=== PATIENT | male | born 1975 | race Caucasian/White ===

== ENCOUNTER 2017-01-10 01:47 | Emergency (ER) | payer MEDICAID ==
[2017-01-10 02:04] VITALS: RESP 18; TEMP 97; O2SAT 98
--- NOTE | 2017-01-10 02:30 | ED PDOC ---
Arrival/HPI - General Chief Complaint: Rib Injury Time Seen by Provider: 01/10/17 01:52 Historian: Patient - History of Present Illness Narrative History of Present Illness (Text): 01/10/17 02:29 Shelton Liz is a 42 year old male, with no significant past medical history, who presents to the emergency department complaining of right-sided lower rib pain. Patient states he was lying on the floor on his right-sided playing with children when he began experiencing pain. Patient states pain is worse with movement. Patient notes he took Ibuprofen at home with relief. Patient denies any fever, chills, shortness of breath, abdominal pain, nausea, vomiting, diarrhea, urinary symptoms, back pain, neck pain, headache, dizziness, or any other complaints. Symptom Onset: Gradual Symptom Course: Unchanged Activities at Onset: Light Context: Home Past Medical History - Provider Review Nursing Documentation Reviewed: Yes - Psychiatric Hx Substance Use: No - Surgical History Other/Comment: anal fissure repair - Anesthesia Hx Anesthesia: Yes Hx Anesthesia Reactions: No Hx Malignant Hyperthermia: No Family/Social History - Physician Review Nursing Documentation Reviewed: Yes Family/Social History: Unknown Family HX Smoking Status: Former Smoker Hx Alcohol Use: No Hx Substance Use: No Allergies/Home Meds Allergies/Adverse Reactions: Allergies No Known Allergies Allergy (Verified 01/10/17 01:59) Review of Systems - Physician Review All systems were reviewed & negative as marked: Yes - Review of Systems Constitutional: Normal. absent: Fevers Eyes: Normal ENT: Normal Respiratory: Normal. absent: SOB, Cough Cardiovascular: Normal. absent: Chest Pain Gastrointestinal: Normal. absent: Abdominal Pain, Diarrhea, Nausea, Vomiting Genitourinary Male: Normal. absent: Dysuria, Frequency, Hematuria, Urinary Output Changes Musculoskeletal: Other (+right lower rib pain) Skin: Normal Neurological: Normal. absent: Headache, Dizziness Endocrine: Normal Hemo/Lymphatic: Normal Psychiatric: Normal Physical Exam Vital Signs Reviewed: Yes Vital Signs Temp Pulse Resp BP Pulse Ox 01/10/17 02:02 97.0 F L 70 18 143/98 H 98 Temperature: Afebrile Blood Pressure: Normal Pulse: Regular Respiratory Rate: Normal Appearance: Positive for: Well-Appearing, Non-Toxic, Comfortable Pain Distress: None Mental Status: Positive for: Alert and Oriented X 3 - Systems Exam Head: Present: Atraumatic, Normocephalic Pupils: Present: PERRL Extroacular Muscles: Present: EOMI Conjunctiva: Present: Normal Mouth: Present: Moist Mucous Membranes Neck: Present: Normal Range of Motion Respiratory/Chest: Present: Clear to Auscultation, Good Air Exchange, Tender to Palpation (Palpable tenderness over right lateral lower rib cage). No: Respiratory Distress, Accessory Muscle Use Cardiovascular: Present: Regular Rate and Rhythm, Normal S1, S2. No: Murmurs Abdomen: Present: Normal Bowel Sounds. No: Tenderness, Distention, Peritoneal Signs Back: Present: Normal Inspection Upper Extremity: Present: Normal Inspection. No: Cyanosis, Edema Lower Extremity: Present: Normal Inspection. No: Edema Neurological: Present: GCS=15, CN II-XII Intact, Speech Normal Skin: Present: Warm, Dry, Normal Color. No: Rashes Psychiatric: Present: Alert, Oriented x 3, Normal Insight, Normal Concentration Medical Decision Making ED Course and Treatment: 01/10/17 02:29 Impression: 42 year old male complaining of right lower rib pain Differential Diagnosis included but are not limited to: rib contusion vs. musculoskeletal pain Plan: -- EKG -- XR Right Ribs -- Toradol -- Reassess and disposition Progress Notes: Reviewed EKG, NSR at [address]-segment elevations or depressions, no T-wave inversions, normal intervals. 01/10/17 04:30 Reviewed radiology, XR Right Ribs shows no acute processes. 01/10/17 04:45 On reevaluation the patient feels better and is in no acute distress. I have discussed the results and plan with the patient, who expresses understanding. Patient is stable for discharge. Patient was instructed to follow up with physician/clinic in 1-2 days or return if symptoms persist/worsen or new concerning symptoms arise. - RAD Interpretation Radiology Orders: 01/10/17 02:31 RIBS RIGHT & PA CHEST [RAD] Stat [employer] Director: ED Physician - EKG Interpretation Interpreted by ED Physician: Yes Type: 12 lead EKG - Medication Orders Current Medication Orders: Discontinued Medications Ketorolac Tromethamine (Toradol) 60 mg IM ONCE ONE Stop: 01/10/17 02:32 Last Admin: 01/10/17 03:02 Dose: 60 mg MAR Pain Assessment Document 01/10/17 03:02 SC (Rec: 01/10/17 03:02 SC [id number]) Pain Reassessment Is this a pain reassessment? No Sleep Is patient sleeping during reassessment? No Presence of Pain Presence of Pain Yes Pain Scale Used Pain Scale Used Numeric Description Intensity of Pain at present 6 IM Administration Charges Document 01/10/17 03:02 MS (Rec: 01/10/17 03:02 MS [id number]) Charges for Administration # of IM Administrations 1 - Scribe Statement The provider has reviewed the documentation as recorded by the Scribe Azalia Christensen All medical record entries made by the Scribe were at my direction and personally dictated by me. I have reviewed the chart and agree that the record accurately reflects my personal performance of the history, physical exam, medical decision making, and the department course for this patient. I have also personally directed, reviewed, and agree with the discharge instructions and disposition. Disposition/Present on Arrival - Present on Arrival Any Indicators Present on Arrival: No History of DVT/PE: No History of Uncontrolled Diabetes: No Urinary Catheter: No History of Decub. Ulcer: No History Surgical Site Infection Following: None - Disposition Have Diagnosis and Disposition been Completed?: Yes Diagnosis: Contusion of ribs Disposition: HOME/ ROUTINE Disposition Time: 04:43 Patient Plan: Discharge Patient Problems: Current Active Problems Problem Status Onset Contusion of ribs Acute Condition: GOOD Discharge Instructions (ExitCare): Contusion in Adults (ED), Rib Contusion (ED) Additional Instructions: Rest/no strenuous physical activity/take meds as prescribed/follow up with your doctor this week Prescriptions: Naproxen [Naprosyn] 500 mg PO BID PRN #14 tab PRN Reason: Pain Referrals: Jamie Herrera MD [Primary Care Provider] - Follow up with primary Forms: [employer] ([place])
[2017-01-10 05:07] VITALS: BP 130/80; PULSE 73
--- NOTE | 2017-01-10 10:42 | RAD ---
PROCEDURE: Radiographs of the Chest and Right Ribs. HISTORY: injury COMPARISON: None available. TECHNIQUE: Frontal radiograph of the chest and multiple oblique radiographs of the right ribs were obtained. FINDINGS: RIGHT RIBS: No fracture or focal lesion visualized. LUNGS: Clear. PLEURA: No pneumothorax or pleural fluid. CARDIOVASCULAR: Normal sized heart. No pulmonary vascular congestion. OTHER FINDINGS: None. IMPRESSION: Unremarkable radiographs of the chest and right ribs. No right rib fracture.
--- NOTE | 2017-01-10 20:59 | CARD ---
APPROVED REPORT EKG Measurement Heart [id number] MI [id number] <Conclusion> Normal sinus rhythm Possible Left atrial enlargement Borderline ECG
== END 2017-01-10 05:03 | disposition home or self-care (01) ==
LOC: ED 01:47
DX: S20.211A Contusion of right front wall of thorax, initial encounter (principal); X58.XXXA Exposure to other specified factors, initial encounter; Y93.89 Activity, other specified; Y92.89 Other specified places as the place of occurrence of the external cause
CPT/HCPCS: 71101; 93005; 96372; 99283; J1885

== ENCOUNTER 2017-03-20 06:06 | Emergency (ER) | payer MEDICAID ==
[2017-03-20 06:30] VITALS: RESP 18; TEMP 98.4; O2SAT 100
[2017-03-20] MEDS ORDERED: Morphine 4 mg/ml ISec IVP STA (06:48)
[2017-03-20] MEDS ORDERED: Sodium Chloride 0.9% 1,000 ML IV STA (06:48)
--- NOTE | 2017-03-20 06:52 | ED PDOC ---
Arrival/HPI - General Chief Complaint: Male Genitourinary Time Seen by Provider: 03/20/17 06:15 - History of Present Illness Narrative History of Present Illness (Text): 03/20/17 06:49 42 yo M presetins with abdominal pain in LLQ that occasionally radiates into testicle. no hx of kidney stones, no hematuria. no fevers. no chills. no hx fo surgeries. started last night, now worsening and woke up from sleep. no position is good, can't get comfortable. + nausea, no vomitting. no CKD, no DM. nml BMs. Past Medical History - Provider Review Nursing Documentation Reviewed: Yes - Past History Past History: Non-Contributing - Psychiatric Hx Substance Use: No - Surgical History Other/Comment: anal fissure repair - Anesthesia Hx Anesthesia: Yes Hx Anesthesia Reactions: No Hx Malignant Hyperthermia: No Family/Social History - Physician Review Nursing Documentation Reviewed: Yes Family/Social History: No Known Family HX Smoking Status: Former Smoker Hx Alcohol Use: No Hx Substance Use: No Allergies/Home Meds Allergies/Adverse Reactions: Allergies No Known Allergies Allergy (Verified 01/10/17 01:59) Review of Systems - Review of Systems Constitutional: absent: Fevers Respiratory: Normal Cardiovascular: Normal Gastrointestinal: Abdominal Pain, Nausea. absent: Stool Changes, Constipation, Diarrhea, Vomiting Genitourinary Male: absent: Dysuria, Frequency, Hematuria Skin: Normal Hemo/Lymphatic: Normal Physical Exam Vital Signs Reviewed: Yes Vital Signs Temp Pulse Resp BP Pulse Ox 03/20/17 11:47 62 18 119/77 100 03/20/17 07:49 77 20 122/70 100 03/20/17 06:26 98.4 F 66 18 143/86 100 Respiratory Rate: Normal Appearance: Positive for: Well-Appearing, Uncomfortable Pain Distress: Moderate Mental Status: Positive for: Alert and Oriented X 3 - Systems Exam Head: Present: Atraumatic Pupils: Present: PERRL Extroacular Muscles: Present: EOMI Mouth: Present: Moist Mucous Membranes Pharnyx: Present: Normal Neck: Present: Normal Range of Motion Respiratory/Chest: Present: Clear to Auscultation, Good Air Exchange, Respiratory Distress Cardiovascular: Present: Regular Rate and Rhythm Abdomen: Present: Tenderness (LLQ), Normal Bowel Sounds. No: Distention, Peritoneal Signs, Hernias Genitourinary Male: Present: Normal External Genitalia. No: Testicle Tenderness , Penile Swelling, Masses, Testicle Swelling Upper Extremity: Present: Normal Inspection, Normal ROM Lower Extremity: Present: Normal Inspection Neurological: Present: GCS=15, Speech Normal, Motor Func Grossly Intact Skin: Present: Warm, Dry, Rashes Medical Decision Making ED Course and Treatment: 03/20/17 06:53 42 yo M concern for LLQ pain diverticulutis vs UVJ stone other bowel issue such as volvulus, obstruction. 03/20/17 07:[address] Iglesias pending labs, CT and revaluation. - Lab Interpretations Lab Results: 03/20/17 07:05 03/20/17 07:05 Lab Results 03/20/17 08:20: pO2 63 H, VBG pH 7.30 L, VBG pCO2 46.0, VBG HCO3 22.6, VBG Total CO2 24.0, VBG O2 Sat (Calc) 94.5 H, VBG Base Excess -4.0 L, VBG Potassium 4.5, Glucose 107, Lactate 1.7, FiO2 21.0, Sodium 141.0, Chloride 110.0 H, Venous Blood Potassium 4.5 03/20/17 07:05: Urine Color Yellow, Urine Appearance Clear, Urine pH 6.0, Ur Specific [place] >= 1.030, Urine Protein 30 H, Urine Glucose (UA) Negative, Urine Ketones Trace H, Urine Blood Moderate H, Urine Nitrate Negative, Urine Bilirubin Negative, Urine Urobilinogen 0.2, Ur Leukocyte Esterase Negative, Urine RBC 25 - 30, Urine WBC 0 - 2, Ur Epithelial Cells 0 - 2, Calcium Oxalate Crystal Occ, Urine Bacteria Small, Hyaline Casts 0 - 2 03/20/17 07:05: Sodium 144, Potassium 3.8, Chloride 107, Carbon Dioxide 25, Anion Gap 16, BUN 18, Creatinine 0.9, Est GFR ( Amer) > 60, Est GFR (Non- Af Amer) > 60, Random Glucose 102, Calcium 9.5, Total Bilirubin 0.4, AST 19, ALT 28, Alkaline Phosphatase 59, Troponin I < 0.01, Total Protein 7.9, Albumin 4.6, Globulin 3.3, Albumin/Globulin Ratio 1.4 03/20/17 07:05: WBC 8.8, RBC 4.47, Hgb 13.4 L, Hct 40.7 L, MCV 91.1, MCH 30.0, MCHC 32.9, RDW 13.4, Plt Count 233, MPV 12.1 H, Gran % 59.4, Lymph % (Auto) 30.8 , [place] % (Auto) 6.7 H, Eos % (Auto) 2.8, Baso % (Auto) 0.3, Gran # 5.22, Lymph # 2.7, [place] # 0.6, Eos # 0.3, Baso # 0.03 - RAD Interpretation Radiology Orders: 03/20/17 06:47 ABD & PELVIS IV CONTRAST ONLY [CT] Stat - Medication Orders Current Medication Orders: Discontinued Medications Hydromorphone HCl (Dilaudid) 1 mg IVP STAT STA Stop: 03/20/17 07:29 Last Admin: 03/20/17 07:36 Dose: 1 mg [facility] Pain Assessment Document 03/20/17 07:36 RG (Rec: 03/20/17 07:41 RG [id number]) Pain Reassessment Is this a pain reassessment? Yes Sleep Is patient sleeping during reassessment? No Presence of Pain Presence of Pain Yes Pain Scale Used Pain Scale Used Numeric Location Left, Right or Bilateral Left Upper or Lower Lower Pain Location Body Site Abdomen Description Description Constant Intensity of Pain at present 8 Pain Behavior Moaning Guarding Irritability Withdrawal from Touch Aggravating Factors Changing Position IVP Administration Document 03/20/17 07:36 RG (Rec: 03/20/17 07:41 RG [id number]) Charges for Administration # of IVP Administrations 1 Re-Assess: [facility] Pain Assessment Document 03/20/17 08:36 EWO (Rec: 03/20/17 09:38 EWO [id number]) Pain Reassessment Is this a pain reassessment? Yes Sleep Is patient sleeping during reassessment? No Presence of Pain Presence of Pain No Pain Scale Used Pain Scale Used Numeric Location Pain Location Body Site Abdomen Description Intensity of Pain at present 0 Sodium Chloride (Sodium Chloride 0.9%) 1,000 mls @ 999 mls/hr IV .Q1H1M STA Stop: 03/20/17 07:48 Last Admin: 03/20/17 07:00 Dose: 999 mls/hr eMAR Start Stop Document 03/20/17 07:00 PAULA (Rec: 03/20/17 07:00 PAULA [id number]) Intravenous Solution Start Date 03/20/17 Start Time 07:00 End Date 03/20/17 End time 08:00 Total Infusion Time 60 Morphine Sulfate (Morphine) 4 mg IVP STAT STA Stop: 03/20/17 06:49 Last Admin: 03/20/17 06:58 Dose: 4 mg [facility] Pain Assessment Document 03/20/17 06:58 PAULA (Rec: 03/20/17 06:58 [id number][facility] Pain Reassessment Is this a pain reassessment? Yes IVP Administration Document 03/20/17 06:58 PAULA (Rec: 03/20/17 06:58 [id number]) Charges for Administration # of IVP Administrations 1 Re-Assess: [facility] Pain Assessment Document 03/20/17 07:58 EWO (Rec: 03/20/17 09:38 EWO [id number]) Pain Reassessment Is this a pain reassessment? Yes Sleep Is patient sleeping during reassessment? No Presence of Pain Presence of Pain Yes Description Description Constant Ondansetron HCl (Zofran Inj) 4 mg IVP STAT STA Stop: 03/20/17 06:49 Last Admin: 03/20/17 06:59 Dose: 4 mg IVP Administration Document 03/20/17 06:59 PAULA (Rec: 03/20/17 06:59 [id number]) Charges for Administration # of IVP Administrations 1 Disposition/Present on Arrival - Present on Arrival Any Indicators Present on Arrival: No History of DVT/PE: No History of Uncontrolled Diabetes: No Urinary Catheter: No History of Decub. Ulcer: No History Surgical Site Infection Following: None - Disposition Have Diagnosis and Disposition been Completed?: Yes Diagnosis: Ureteral calculus Disposition: HOME/ ROUTINE Disposition Time: 09:00 Patient Plan: Discharge Condition: IMPROVED Discharge Instructions (ExitCare): Ureteral Stones (ED) Additional Instructions: Please follow up with the urologist. Return to the ER for any worsening symptoms , fever, chills, or for any other concerns. Prescriptions: Ondansetron ODT [Zofran ODT] 4 mg PO Q4H PRN #10 odt PRN Reason: Nausea/Vomiting oxyCODONE/Acetaminophen [Percocet 5/325 mg Tab] 1 ea PO Q6H PRN #6 tab PRN Reason: Pain, Severe (8-10) Tamsulosin [Flomax] 0.4 mg PO DAILY #4 cap Referrals: Wesley Moncada MD [Staff Provider] - Follow up with primary Forms: [employer] ([place]wana), WORK NOTE
[2017-03-20 07:24] LABS: BASO # 0.03 K/mm3 (0.0-2.0); BASO % 0.3 % (0.0-3.0); EOS # 0.3 (0.0-0.7); EOS % 2.8 % (1.5-5.0); GRAN # 5.22 (1.4-6.5); GRAN % 59.4 % (50.0-68.0); HEMOGLOBIN 13.4 g/dL (14.0-18.0); LYMPH # 2.7 (1.2-3.4); LYMPH % 30.8 % (22.0-35.0); MEAN CELL VOLUME 91.1 fl (80.0-105.0); MEAN CORPUSCULAR HGB CONC 32.9 g/dl (31.0-37.0); MEAN PLATELET VOLUME 12.1 fl (7.0-11.0); MONO # 0.6 (0.1-0.6); MONO % 6.7 % (1.0-6.0); RBC 4.47 10^6/uL (3.5-6.1); RED CELL DISTRIBUTION WIDTH 13.4 % (11.5-14.5); URINE BILIRUBIN NEGATIVE (NEGATIVE); URINE BLOOD MODERATE (NEGATIVE); URINE GLUCOSE (UA) NEGATIVE (NEGATIVE); URINE LEUKOCYTE ESTERASE NEGATIVE Leu/uL (NEGATIVE); URINE NITRATE NEGATIVE (NEGATIVE); URINE PROTEIN 30 mg/dL (<30 mg/dL); URINE UROBILINOGEN 0.2 E.U./dL (<1 E.U./dL); WHITE BLOOD COUNT 8.8 10^3/ul (4.5-11.0)
[2017-03-20] MEDS ORDERED: HYDROmorphone 1 mg/ml ISec IVP STA (07:28)
[2017-03-20 07:34] LABS: ALB/GLOB RATIO 1.4 (1.1-1.8); ALBUMIN 4.6 g/dL (3.0-4.8); ALT/SGPT 28 U/L (7-56); AST/SGOT 19 U/L (17-59); BLOOD UREA NITROGEN 18 mg/dL (7-21); CALCIUM 9.5 mg/dL (8.4-10.5); GFR AFRICAN-AMERICAN > 60; GFR NON-AFRICAN AMERICAN > 60
[2017-03-20 07:40] LABS: URINE APPEARANCE CLEAR (CLEAR); URINE COLOR YELLOW (YELLOW)
[2017-03-20 07:44] LABS: TROPONIN I < 0.01 ng/mL
--- NOTE | 2017-03-20 08:13 | ED PDOC ---
Physical Exam Vital Signs Reviewed: Yes Vital Signs Temp Pulse Resp BP Pulse Ox 03/20/17 06:26 98.4 F 66 18 143/86 100 Temperature: Afebrile Blood Pressure: Normal Pulse: Regular Respiratory Rate: Normal Medical Decision Making ED Course and Treatment: 03/20/17 08:12 Patient endorsed to me by Dr. Langston at 07:00, pending labs and CT results. Report Date : 03/20/2017 10:45:51 PROCEDURE: CT scan abdomen and pelvis 03/20/2017. Dictator : Shelton Palacio MD IMPRESSION: 3.5 mm calcification in the with the left aspect of the pelvis possibly representing a calculus within left UVJ or possibly in the intramural portion of the distal left ureter with minor dilatation of the left ureter. Clinical correlation with urinalysis recommended. Multiple bilateral renal cysts. Findings consist with constipation the with the fecalized content extending into the distal ileum. Mild passive atelectasis both posterior lower lung zones. 03/20/17 11:30 On re-evaluation, patient is resting comfortable in no acute distress. He states his pain has fully resolved. I have discussed the results and plan with the patient, who expresses understanding. Patient in agreement with plan to be discharged home. Patient is stable for discharge. Patient was instructed to follow up with urologist or return if symptoms worsen or new concerning symptoms arise. - Lab Interpretations Lab Results: 03/20/17 07:05 03/20/17 07:05 Lab Results 03/20/17 08:20: pO2 63 H, VBG pH 7.30 L, VBG pCO2 46.0, VBG HCO3 22.6, VBG Total CO2 24.0, VBG O2 Sat (Calc) 94.5 H, VBG Base Excess -4.0 L, VBG Potassium 4.5, Glucose 107, Lactate 1.7, FiO2 21.0, Sodium 141.0, Chloride 110.0 H, Venous Blood Potassium 4.5 03/20/17 07:05: Urine Color Yellow, Urine Appearance Clear, Urine pH 6.0, Ur Specific [place] >= 1.030, Urine Protein 30 H, Urine Glucose (UA) Negative, Urine Ketones Trace H, Urine Blood Moderate H, Urine Nitrate Negative, Urine Bilirubin Negative, Urine Urobilinogen 0.2, Ur Leukocyte Esterase Negative, Urine RBC 25 - 30, Urine WBC 0 - 2, Ur Epithelial Cells 0 - 2, Calcium Oxalate Crystal Occ, Urine Bacteria Small, Hyaline Casts 0 - 2 03/20/17 07:05: Sodium 144, Potassium 3.8, Chloride 107, Carbon Dioxide 25, Anion Gap 16, BUN 18, Creatinine 0.9, Est GFR ( Amer) > 60, Est GFR (Non- Af Amer) > 60, Random Glucose 102, Calcium 9.5, Total Bilirubin 0.4, AST 19, ALT 28, Alkaline Phosphatase 59, Troponin I < 0.01, Total Protein 7.9, Albumin 4.6, Globulin 3.3, Albumin/Globulin Ratio 1.4 03/20/17 07:05: WBC 8.8, RBC 4.47, Hgb 13.4 L, Hct 40.7 L, MCV 91.1, MCH 30.0, MCHC 32.9, RDW 13.4, Plt Count 233, MPV 12.1 H, Gran % 59.4, Lymph % (Auto) 30.8 , [place] % (Auto) 6.7 H, Eos % (Auto) 2.8, Baso % (Auto) 0.3, Gran # 5.22, Lymph # 2.7, [place] # 0.6, Eos # 0.3, Baso # 0.03 - RAD Interpretation Radiology Orders: 03/20/17 06:47 ABD & PELVIS IV CONTRAST ONLY [CT] Stat - Medication Orders Current Medication Orders: Discontinued Medications Hydromorphone HCl (Dilaudid) 1 mg IVP STAT STA Stop: 03/20/17 07:29 Last Admin: 03/20/17 07:36 Dose: 1 mg [facility] Pain Assessment Document 03/20/17 07:36 (Rec: 03/20/17 07:41 [id number]) Pain Reassessment Is this a pain reassessment? Yes Sleep Is patient sleeping during reassessment? No Presence of Pain Presence of Pain Yes Pain Scale Used Pain Scale Used Numeric Location Left, Right or Bilateral Left Upper or Lower Lower Pain Location Body Site Abdomen Description Description Constant Intensity of Pain at present 8 Pain Behavior Moaning Guarding Irritability Withdrawal from Touch Aggravating Factors Changing Position IVP Administration Document 03/20/17 07:36 (Rec: 03/20/17 07:41 [id number]) Charges for Administration # of IVP Administrations 1 Re-Assess: [facility] Pain Assessment Document 03/20/17 08:36 EWO (Rec: 03/20/17 09:38 EWO [id number]) Pain Reassessment Is this a pain reassessment? Yes Sleep Is patient sleeping during reassessment? No Presence of Pain Presence of Pain No Pain Scale Used Pain Scale Used Numeric Location Pain Location Body Site Abdomen Description Intensity of Pain at present 0 Sodium Chloride (Sodium Chloride 0.9%) 1,000 mls @ 999 mls/hr IV .Q1H1M STA Stop: 03/20/17 07:48 Last Admin: 03/20/17 07:00 Dose: 999 mls/hr eMAR Start Stop Document 03/20/17 07:00 PAULA (Rec: 03/20/17 07:00 [facility]ULA [id number][facility] Intravenous Solution Start Date 03/20/17 Start Time 07:00 End Date 03/20/17 End time 08:00 Total Infusion Time 60 Morphine Sulfate (Morphine) 4 mg IVP STAT STA Stop: 03/20/17 06:49 Last Admin: 03/20/17 06:58 Dose: 4 mg [facility] Pain Assessment Document 03/20/17 06:58 PAULA (Rec: 03/20/17 06:58 [facility]ULA [facility] [id number]) Pain Reassessment Is this a pain reassessment? Yes IVP Administration Document 03/20/17 06:58 PAULA (Rec: 03/20/17 06:58 [facility]ULA [facility] [id number]) Charges for Administration # of IVP Administrations 1 Re-Assess: [facility] Pain Assessment Document 03/20/17 07:58 EWO (Rec: 03/20/17 09:38 O [facility] [id number]) Pain Reassessment Is this a pain reassessment? Yes Sleep Is patient sleeping during reassessment? No Presence of Pain Presence of Pain Yes Description Description Constant Ondansetron HCl (Zofran Inj) 4 mg IVP STAT STA Stop: 03/20/17 06:49 Last Admin: 03/20/17 06:59 Dose: 4 mg IVP Administration Document 03/20/17 06:59 PAULA (Rec: 03/20/17 06:59 PAULA [id number]) Charges for Administration # of IVP Administrations 1 Disposition/Present on Arrival - Present on Arrival Any Indicators Present on Arrival: No History of DVT/PE: No History of Uncontrolled Diabetes: No Urinary Catheter: No History of Decub. Ulcer: No History Surgical Site Infection Following: None - Disposition Have Diagnosis and Disposition been Completed?: Yes Disposition Time: 11:30 Referrals: Jamie Herrera MD [Primary Care Provider] - Follow up with primary Forms: [employer] (Irish)
[2017-03-20 08:27] LABS: URINE BACTERIA SMALL (NEG); URINE EPITHELIAL CELLS 0 - 2 /hpf (0-5); URINE HYALINE CAST 0 - 2 /hpf
[2017-03-20 08:29] LABS: VENOUS BLOOD GAS PO2 63 mm/Hg (30-55)
[2017-03-20 08:33] LABS: URINE RBC 25 - 30 /hpf (0-2); URINE WBC 0 - 2 /hpf (0-6)
[2017-03-20 08:34] LABS: URINE CALCIUM OXALATE CRYSTALS OCC /hpf
[2017-03-20] MEDS ORDERED: Iohexol 350 MG/100 ML VIAL ONE (08:50)
--- NOTE | 2017-03-20 10:47 | CT ---
PROCEDURE: CT scan abdomen and pelvis 03/20/2017. HISTORY: LLQ abdominal pain COMPARISON: None. TECHNIQUE: Contiguous axial images of the abdomen and pelvis pelvis performed following intravenous injection of approximately 100 cc of Omnipaque 350 contrast material. . Coronal and Sagittal reformats generated. Radiation dose: Total exam DLP = 752.21 mGy-cm. This CT exam was performed using one or more of the following dose reduction techniques: Automated exposure control, adjustment of the mA and/or kV according to patient size, and/or use of iterative reconstruction technique. FINDINGS: LOWER THORAX: Mild passive atelectasis in the posterior lower lung zones. Lung lau otherwise clear. No effusion or basilar pneumothorax. There is a small hiatal hernia. Heart size within range of normal. No significant pericardial effusion. No infiltrate effusion or basilar pneumothorax. LIVER: Liver demonstrates relatively normal size measuring approximately 17 cm in CC dimension. No obvious hepatic mass collection or calcification. Portal and splenic veins are opacified. GALLBLADDER AND BILE DUCTS: Gallbladder is physiologically distended. No evidence of intraluminal gallbladder calculi. PANCREAS: Unremarkable. No mass. No ductal dilatation. SPLEEN: Unremarkable. No splenomegaly. ADRENALS: Unremarkable. KIDNEYS AND URETERS: 3.5 mm calcification in the with the left aspect of the pelvis possibly representing a calculus within left UVJ or possibly in the intramural portion of the distal left ureter with minor dilatation of the left ureter. . Clinical correlation with urinalysis recommended. The There are multiple bilateral renal cysts, the 2 largest of which are partially exophytic and arise from the upper and anterolateral aspect mid to lower poles of the left kidney ; the 1st measures approximately 6.0 x 5.4 cm and the 2nd measures approximately 6.0 x 4.4 2 cm. The largest partially exophytic cyst arising from lower pole right kidney measures approximately 3.8 cm. . Several smaller bilateral renal cysts are also noted. No evidence of nephrolithiasis or hydronephrosis. BLADDER: Urinary bladder is physiologically distended. No evidence of intraluminal urinary bladder calculi. REPRODUCTIVE: Prostate gland appears grossly unremarkable. APPENDIX: What is felt to represent normal appendix best seen on coronal image number [id number]. No periappendiceal inflammatory changes. BOWEL: Evaluation of the bowel is limited due to the lack of oral contrast material. The stomach is collapsed which in part accounts for thick-walled appearance. Visualized loops of small bowel exhibit normal contour and caliber. No evidence of acute mechanical small bowel obstruction however note made of a moderate amount of fecalized content within the distal ileum with a moderately large amount of stool in the cecum and ascending as well as transverse colon consistent with fecal retention-constipation. The sigmoid colon is redundant. No definitive evidence of abnormal mural wall thickening. PERITONEUM: Unremarkable. No fluid collection. No free air. There is a small fat containing umbilical hernia. LYMPH NODES: Note made of multiple small nonspecific mesenteric lymph nodes. VASCULATURE: Unremarkable. No aortic aneurysm. BONES: Minor multilevel degenerative spondylosis of the lower thoracic and lumbar spine. OTHER FINDINGS: None. IMPRESSION: 3.5 mm calcification in the with the left aspect of the pelvis possibly representing a calculus within left UVJ or possibly in the intramural portion of the distal left ureter with minor dilatation of the left ureter. . Clinical correlation with urinalysis recommended. Multiple bilateral renal cysts. Findings consist with constipation the with the fecalized content extending into the distal ileum. Mild passive atelectasis both posterior lower lung zones.
[2017-03-20 11:48] VITALS: BP 119/77; PULSE 62
== END 2017-03-20 12:00 | disposition home or self-care (01) ==
LOC: ED 06:06
DX: N20.1 Calculus of ureter (principal)
CPT/HCPCS: 74177; 80053; 81001; 82803; 84484; 85025; 96361; 96374; 96375; 99283; J1170; J2270; J2405; J7040; Q9967

== ENCOUNTER 2017-04-21 23:02 | Emergency (ER) | payer MEDICAID ==
[2017-04-21 23:35] VITALS: RESP 18; TEMP 97.6
--- NOTE | 2017-04-21 23:57 | ED PDOC ---
Arrival/HPI - General Chief Complaint: Dizziness/Lightheaded Time Seen by Provider: 04/21/17 23:28 Historian: Patient - History of Present Illness Narrative History of Present Illness (Text): 04/21/17 23:53 Shelton Liz is a 42 year old male, whose past medical history includes renal stones, who presents to the Emergency department complaining of dizziness. Patient states he was recently diagnosed with renal stones on few weeks and prior and placed on Percocet. Patient states he took 1 Percocet tablet tonight and began feeling very dizzy with associated nausea. Patient states he has taken Percocet before but did not experience any symptoms. Patient states dizziness and nausea has resolved, but notes some left flank pain consistent with his usual kidney stone discomfort. Patient denies any fever, chills, chest pain, shortness of breath, vomiting, diarrhea, urinary symptoms, neck pain, headache, or any other complaints. Symptom Onset: Gradual Symptom Course: Unchanged Activities at Onset: Light Context: Home Past Medical History - Provider Review Nursing Documentation Reviewed: Yes - Past History Past History: Non-Contributing - Cardiac Hx Cardiac Disorders: No - Pulmonary Hx Respiratory Disorders: No - Neurological Hx Neurological Disorder: No Hx Vertigo: Yes - HEENT Hx HEENT Disorder: No - Renal Hx Kidney Stones: Yes (left) - Endocrine/Metabolic Hx Endocrine Disorders: No - Hematological/Oncological Hx Blood Disorders: No - Integumentary Hx Dermatological Disorder: No - Musculoskeletal/Rheumatological Hx Musculoskeletal Disorders: No - Gastrointestinal Hx Gastrointestinal Disorders: No - Genitourinary/Gynecological Hx Genitourinary Disorders: No - Psychiatric Hx Psychophysiologic Disorder: No Hx Substance Use: No - Surgical History Other/Comment: anal fissure repair - Anesthesia Hx Anesthesia: Yes Hx Anesthesia Reactions: No Hx Malignant Hyperthermia: No Family/Social History - Physician Review Nursing Documentation Reviewed: Yes Family/Social History: Unknown Family HX Smoking Status: Former Smoker Hx Alcohol Use: No Hx Substance Use: No Allergies/Home Meds Allergies/Adverse Reactions: Allergies No Known Allergies Allergy (Verified 04/21/17 23:26) Review of Systems - Physician Review All systems were reviewed & negative as marked: Yes - Review of Systems Constitutional: Normal. absent: Fevers Eyes: Normal ENT: Normal Respiratory: Normal. absent: SOB, Cough Cardiovascular: Normal. absent: Chest Pain Gastrointestinal: Nausea. absent: Abdominal Pain, Diarrhea, Vomiting Genitourinary Male: Normal. absent: Dysuria, Frequency, Hematuria, Urinary Output Changes Musculoskeletal: Normal. absent: Back Pain, Neck Pain Skin: Normal. absent: Rash Neurological: Dizziness. absent: Headache Endocrine: Normal Hemo/Lymphatic: Normal Psychiatric: Normal Physical Exam Vital Signs Reviewed: Yes Vital Signs Temp Pulse Resp BP Pulse Ox 04/22/17 01:58 65 18 118/78 99 04/21/17 23:27 97.6 F 66 18 110/76 97 Temperature: Afebrile Blood Pressure: Normal Pulse: Regular Respiratory Rate: Normal Appearance: Positive for: Well-Appearing, Non-Toxic, Comfortable Pain Distress: None Mental Status: Positive for: Alert and Oriented X 3 - Systems Exam Head: Present: Atraumatic, Normocephalic Pupils: Present: PERRL Extroacular Muscles: Present: EOMI Conjunctiva: Present: Normal Mouth: Present: Moist Mucous Membranes Neck: Present: Normal Range of Motion Respiratory/Chest: Present: Clear to Auscultation, Good Air Exchange. No: Respiratory Distress, Accessory Muscle Use Cardiovascular: Present: Regular Rate and Rhythm, Normal S1, S2. No: Murmurs Abdomen: Present: Normal Bowel Sounds. No: Tenderness, Distention, Peritoneal Signs Back: Present: Normal Inspection Upper Extremity: Present: Normal Inspection. No: Cyanosis, Edema Lower Extremity: Present: Normal Inspection. No: Edema Neurological: Present: GCS=15, CN II-XII Intact, Speech Normal Skin: Present: Warm, Dry, Normal Color. No: Rashes Psychiatric: Present: Alert, Oriented x 3, Normal Insight, Normal Concentration Medical Decision Making ED Course and Treatment: 04/21/17 23:53 Impression: 42 year old male complaining of dizziness and nausea after taking Percocet tonight. Plan: -- EKG -- Labs -- UA -- Reassess and disposition Reviewed EKG, NSR at [address]-segment elevations or depressions, no T-wave inversions, normal intervals. 04/22/17 02:10 On re-evaluation, patient feels better and is in no acute distress. I have discussed the results and plan with the patient, who expresses understanding. Patient in agreement with plan to be discharged home. Patient is stable for discharge. Patient was instructed to follow up with physician or return if symptoms worsen or new concerning symptoms arise. - Lab Interpretations Lab Results: 04/22/17 00:30 04/22/17 00:30 Lab Results 04/22/17 00:30: Sodium 137, Potassium 3.6, Chloride 102, Carbon Dioxide 26, Anion Gap 14, BUN 15, Creatinine 0.7 L, Est GFR ( Amer) > 60, Est GFR ( Non-Af Amer) > 60, Random Glucose 110, Calcium 9.6, Total Bilirubin 0.6, AST 21 , ALT 33, Alkaline Phosphatase 68, Total Protein 7.6, Albumin 4.4, Globulin 3.2 , Albumin/Globulin Ratio 1.4 04/22/17 00:30: WBC 10.6 D, RBC 4.42, Hgb 13.4 L, Hct 39.9 L, MCV 90.3, MCH 30.3, MCHC 33.6, RDW 13.4, Plt Count 228, MPV 11.4 H, Gran % 58.8, Lymph % (Auto ) 31.7, [place] % (Auto) 6.6 H, Eos % (Auto) 2.7, Baso % (Auto) 0.2, Gran # 6.22, Lymph # (Auto) 3.4, [place] # (Auto) 0.7 H, Eos # (Auto) 0.3, Baso # (Auto) 0.02 04/22/17 00:28: Urine Color Yellow, Urine Appearance Clear, Urine pH 6.5, Ur Specific [place] 1.020, Urine Protein 100 H, Urine Glucose (UA) Negative, Urine Ketones Negative, Urine Blood Negative, Urine Nitrate Negative, Urine Bilirubin Negative, Urine Urobilinogen 0.2, Ur Leukocyte Esterase Negative, Urine RBC 0 - 2, Urine WBC 1 - 3, Ur Epithelial Cells 0 - 2 I have reviewed the lab results: Yes - EKG Interpretation Interpreted by ED Physician: Yes Type: 12 lead EKG - Scribe Statement The provider has reviewed the documentation as recorded by the Abelardo Christensen Provider Scribe Attestation: All medical record entries made by the Scribe were at my direction and personally dictated by me. I have reviewed the chart and agree that the record accurately reflects my personal performance of the history, physical exam, medical decision making, and the department course for this patient. I have also personally directed, reviewed, and agree with the discharge instructions and disposition. Disposition/Present on Arrival - Present on Arrival Any Indicators Present on Arrival: No History of DVT/PE: No History of Uncontrolled Diabetes: No Urinary Catheter: No History of Decub. Ulcer: No History Surgical Site Infection Following: None - Disposition Have Diagnosis and Disposition been Completed?: Yes Diagnosis: Medication adverse effect Disposition: HOME/ ROUTINE Disposition Time: 02:10 Condition: GOOD Discharge Instructions (ExitCare): Renal Colic (ED) Referrals: Jamie Herrera MD [Primary Care Provider] - Follow up with primary Forms: [employer] (E[place]ian)
[2017-04-22 00:38] LABS: BASO # 0.02 K/mm3 (0.0-2.0); BASO % 0.2 % (0.0-3.0); EOS # 0.3 (0.0-0.7); EOS % 2.7 % (1.5-5.0); GRAN # 6.22 (1.4-6.5); GRAN % 58.8 % (50.0-68.0); HEMOGLOBIN 13.4 g/dL (14.0-18.0); LYMPH # 3.4 (1.2-3.4); LYMPH % 31.7 % (22.0-35.0); MEAN CELL VOLUME 90.3 fl (80.0-105.0); MEAN CORPUSCULAR HEMOGLOBIN 30.3 pg (25.0-35.0); MEAN CORPUSCULAR HGB CONC 33.6 g/dl (31.0-37.0); MEAN PLATELET VOLUME 11.4 fl (7.0-11.0); MONO # 0.7 (0.1-0.6); MONO % 6.6 % (1.0-6.0); RBC 4.42 10^6/uL (3.5-6.1); RED CELL DISTRIBUTION WIDTH 13.4 % (11.5-14.5); WHITE BLOOD COUNT 10.6 10^3/ul (4.5-11.0)
[2017-04-22 00:48] LABS: ALB/GLOB RATIO 1.4 (1.1-1.8); ALBUMIN 4.4 g/dL (3.0-4.8); ALT/SGPT 33 U/L (7-56); AST/SGOT 21 U/L (17-59); BLOOD UREA NITROGEN 15 mg/dL (7-21); CALCIUM 9.6 mg/dL (8.4-10.5); GFR AFRICAN-AMERICAN > 60; GFR NON-AFRICAN AMERICAN > 60
[2017-04-22 01:35] LABS: PH,URINE 6.5 (4.7-8.0); URINE BILIRUBIN NEGATIVE (NEGATIVE); URINE BLOOD NEGATIVE (NEGATIVE); URINE GLUCOSE (UA) NEGATIVE (NEGATIVE); URINE LEUKOCYTE ESTERASE NEGATIVE Leu/uL (NEGATIVE); URINE NITRATE NEGATIVE (NEGATIVE); URINE PROTEIN 100 mg/dL (<30 mg/dL); URINE UROBILINOGEN 0.2 E.U./dL (<1 E.U./dL)
[2017-04-22 01:37] LABS: URINE COLOR YELLOW (YELLOW)
[2017-04-22 01:38] LABS: URINE APPEARANCE CLEAR (CLEAR)
[2017-04-22 01:55] LABS: URINE EPITHELIAL CELLS 0 - 2 /hpf (0-5); URINE RBC 0 - 2 /hpf (0-2)
[2017-04-22 01:58] VITALS: BP 118/78; PULSE 65; O2SAT 99
--- NOTE | 2017-04-22 16:13 | CARD ---
APPROVED REPORT EKG Measurement Heart [id number] <Conclusion> Normal sinus rhythm Normal ECG
== END 2017-04-22 02:10 | disposition home or self-care (01) ==
LOC: ED 23:02
DX: N23 Unspecified renal colic (principal); T50.995A Adverse effect of other drugs, medicaments and biological substances, initial encounter; Y92.89 Other specified places as the place of occurrence of the external cause